=== PATIENT | male | born 1975 | race African-American/Black ===

== ENCOUNTER 2021-05-23 12:32 | Emergency (ER) | payer OTHER ==
[~2021-05-23] VITALS: Ht 172.7 cm; Wt 81.7 kg
[2021-05-23 13:16] LABS: BASOPHILS 0.3 % (0.0-2.0); EOSINOPHILS 1.5 % (0.0-3.0); HEMOGLOBIN 15.6 gm/dL (14.0-18.0); LYMPHOCYTES 23.6 % (24.0-44.0); MCH 31.1 pg (26.0-34.0); MCHC 33.9 g/dL (28.0-37.0); MCV 91.8 fL (80.0-100.0); MONOCYTES 7.5 % (1.0-8.0); PLATELET COUNT 269 thou/uL (150-400); POLYS 67.1 % (36.0-66.0); RBC 5.02 mil/uL (4.50-6.00); RDW 13.3 % (10.5-14.5)
[2021-05-23 13:29] LABS: CALCIUM 8.7 mg/dL (8.5-10.1); CREATININE 1.3 mg/dL (0.7-1.3); POTASSIUM 3.8 mmol/L (3.5-5.1)
[2021-05-23 13:35] LABS: ALBUMIN 3.9 g/dL (3.4-5.0); MAGNESIUM 2.2 mg/dL (1.8-2.4); TOTAL BILIRUBIN 0.4 mg/dL (0.2-1.0); TOTAL PROTEIN 7.7 g/dL (6.4-8.2)
[2021-05-23] MEDS ORDERED: METFORMIN HCL500 M3 PO (13:36)
[2021-05-23] MEDS ORDERED: LISINOPRIL10 MG PO (13:36)
[2021-05-23] MEDS ORDERED: JANUVIA25 MG PO (13:37)
[2021-05-23] MEDS ORDERED: NORVASC 2.5 MG2.5 M1 PO (13:37)
[2021-05-23 13:58] VITALS: BP 125/80
[2021-05-23] MEDS ORDERED: MECLIZINE HCL25 M1 PO (13:58)
--- NOTE | 2021-05-24 09:31 | EKG ---
[place] [address] [facility] [place] [address] ELECTROCARDIOGRAM REPORT Name: GUDELIA FLEMING Room #: DEP Sangita#: [id number] Admission: 05/23/21 Attend Phys: Discharge: 05/23/21 Date of : 75 Report #: [id number] [facility] ED Test Date: 2021-05-23 Test Time: 13:14:09 Pat Name: GUDELIA FLEMING Department: Room: Gender: Auto Electrician: erika : 1975 Requested By: Rafael Bateman Order Number: [id number] MD: Bethel Montalvo Measurements Intervals [place] Rate: 91 P: 58 AR: 179 QRS: -21 QRSD: 89 T: 62 QT: 373 QTc: 459 Interpretive Statements Sinus rhythm Poor R wave progression No previous ECG available for comparison Electronically Signed On 05-24-2021 9:31:33 CDT by Bethel Montalvo [email or web address] <ELECTRONICALLY SIGNED> By: Bethel Montalvo MD, [facility] 05/24/21 0931 1314 1314 Bethel Montalvo MD, FACC /EPI
== END 2021-05-23 13:58 | disposition home or self-care (01) ==
LOC: ER 12:32
PROVIDERS: Emergency Medicine
DX: R42 Dizziness and giddiness (principal); Z20.822 Contact with and (suspected) exposure to COVID-19; F10.129 Alcohol abuse with intoxication, unspecified; R41.0 Disorientation, unspecified; E11.9 Type 2 diabetes mellitus without complications; I11.0 Hypertensive heart disease with heart failure; I50.9 Heart failure, unspecified; Z79.84 Long term (current) use of oral hypoglycemic drugs; Z79.899 Other long term (current) drug therapy; Z88.0 Allergy status to penicillin